=== PATIENT | male | born 1950 | race Caucasian/White ===

== ENCOUNTER → 2016-05-29 | Outpatient (CLI) | payer BC ==
[~2016-05-29] VITALS: Ht 175.3 cm; Wt 83.9 kg
[~2016-05-29] MED LIST: ANTACID CALCIU215 MG PO; BISOPROLOL FUMAR5 MG PO; COMBIVENT RESPIM4 GM IH; COUMADIN5 MG PO; Cardizem CD,Cartia X PO; Coumadin,Jantoven PO; DILTIAZEM 24HR240 MG PO; LASIX40 MG PO; LOPRESSOR25 MG PO; Lopressor PO; PRAVACHOL40 MG PO; RABANO YOD50 MG/15 M PO; VITAMIN D35000 UNIT PO; ZESTRIL5 MG PO; [UNRECOGNIZED DRUG - OTHER] PO; celeXA PO
[2016-05-29 10:32] LABS: PROTHROMBIN TIME 14.7 (9.2-11.2); PTT 38.3 (25-32)
[2016-05-29 10:35] LABS: INTER. NORMALIZED RATIO 1.4
== END | disposition home or self-care (01) ==
LOC: AMB 09:26
PROVIDERS: Anesthesiology
DX: K52.9 Noninfective gastroenteritis and colitis, unspecified (principal); K62.1 Rectal polyp; K57.32 Diverticulitis of large intestine without perforation or abscess without bleeding; K62.5 Hemorrhage of anus and rectum; I48.91 Unspecified atrial fibrillation; E05.90 Thyrotoxicosis, unspecified without thyrotoxic crisis or storm; J44.9 Chronic obstructive pulmonary disease, unspecified; I10 Essential (primary) hypertension; E78.00 Pure hypercholesterolemia, unspecified; J45.909 Unspecified asthma, uncomplicated; Z79.01 Long term (current) use of anticoagulants
CPT/HCPCS: 85610; 85730; 88305; 93005; J2250